=== PATIENT | male | born 1970 | race African-American/Black ===

== ENCOUNTER 2016-07-10 08:46 | Observation (INO) | payer OTHER ==
[~2016-07-10] VITALS: Ht 165.1 cm; Wt 88.6 kg
[~2016-07-10 08:46] MED LIST: CLEOCIN300 MG PO
[2016-07-10 09:46] LABS: HEMATOCRIT 47.7 % (38.0-50.0); MCH 32.2 PG (29.0-34.0); MCHC 33.5 G/DL (30.0-36.0); MEAN PLAT.VOLUME 8.2 uM^3 (9.0-12.4); PLATELET COUNT 283 K/uL (156-360); RBC DIS.WIDTH-CV 11.9 % (11.8-14.6); RBC DIS.WIDTH-SD 41.9 % (39-53); RED BLOOD COUNT 4.97 M/uL (4.00-5.50); WHITE BLOOD COUNT 8.8 K/uL (4.1-10.2)
[2016-07-10 09:55] LABS: CHLORIDE 107 mEq/L (99-109); POTASSIUM 3.9 mEq/L (3.7-5.4); SODIUM 141 mEq/L (136-147)
[2016-07-10 09:57] LABS: GLUCOSE 122 mg/dL (70-99)
[2016-07-10 09:59] LABS: ANION GAP 10 MEQ/L (2-14)
[2016-07-10 10:00] LABS: SERUM ETHYL ALCOHOL < 10 mg/dL
[2016-07-10 10:01] LABS: GFR ESTIMATE (CALCULATED) > 59 mL/min/
[2016-07-10 10:02] LABS: UREA NITROGEN (BUN) 18 mg/dL (9-23)
[2016-07-10 10:09] LABS: TROP-I INTERPRETATION NEGATIVE; TROPONIN-I < 0.01 ng/mL (0.0-0.30)
[2016-07-10 11:11] LABS: ADD MIUA? NO; BILIRUBIN NEGATIVE; BLOOD NEGATIVE; COLOR YELLOW ((YELLOW)); GLUCOSE (STRIP) NEGATIVE; KETONES NEGATIVE; LEUKOCYTES NEGATIVE; NITRITE NEGATIVE; PROTEIN (STRIP) NEGATIVE; SPECIFIC GRAVITY 1.029 (1.000-1.030)
[2016-07-10 11:31] LABS: ADD MEDTOX COMMENT Y; AMPHETAMINE NEGATIVE (500 ng/mL); BARBITURATES NEGATIVE (200 ng/mL); BENZODIAZEPINES NEGATIVE (150 ng/mL); COCAINE PRESUMPTIVE POSITIVE (150 ng/mL); INTERNAL CONTROLS VALID? YES; METHADONE NEGATIVE (200 ng/mL); METHAMPHETAMINE NEGATIVE (500 ng/mL); OPIATES (MORPHINE) NEGATIVE (100 ng/mL); OXYCODONE NEGATIVE (100 ng/mL); PHENCYCLIDINE NEGATIVE (25 ng/mL); PROPOXYPHENE NEGATIVE (300 ng/mL); THC CANNABINOIDS NEGATIVE (50 ng/mL); TRICYCLIC ANTIDEPRESSANTS NEGATIVE (300 ng/mL)
[2016-07-10 13:12] LABS: HDL CHOLESTEROL 62 MG/DL (Desirable>=40); LDL CHOLESTEROL 106 mg/dL (Desirable<100); NON-HDL CHOLESTEROL 119 mg/dL (Desirable<160); TOTAL CHOLESTEROL 181 mg/dL (Desirable<200); TRIGLYCERIDES 63 MG/DL (Normal: <150)
[2016-07-10 13:51] VITALS: BP 113/67
[2016-07-10 16:07] VITALS: BP 135/95
[2016-07-10 19:32] LABS: TROP-I INTERPRETATION NEGATIVE; TROPONIN-I < 0.01 ng/mL (0.0-0.30)
[2016-07-10 20:01] VITALS: BP 150/67
[2016-07-11] VITALS (7 sets, daily range): BP systolic 106–128; BP diastolic 67–80
[2016-07-11 08:42] LABS: TROP-I INTERPRETATION NEGATIVE; TROPONIN-I < 0.01 ng/mL (0.0-0.30)
[2016-07-11 13:00] LABS: HIV INDEX 276.09; HIV-1/2 AB/AG COMBO REACTIVE
[2016-07-11] MEDS ORDERED: OXYCODONE HCL10 MG PO (22:08)
[2016-07-12 00:06] VITALS: BP 120/60
[2016-07-12 04:28] VITALS: BP 111/88
[2016-07-12 08:00] VITALS: BP 123/78
[2016-07-12 12:13] VITALS: BP 131/68
[2016-07-14 12:13] LABS: HIV 1 Antibody Positive (Negative); HIV 2 Antibody Negative (Negative)
== END 2016-07-12 13:37 | disposition left against medical advice (07) ==
LOC: EME 08:46 → EDOF 12:10 → 5WEST 12:10 → EDOF 12:10 → 5WEST 13:31
PROVIDERS: Internal Medicine; Nurse Practitioner Family
DX: R07.9 Chest pain, unspecified (principal); B20 Human immunodeficiency virus [HIV] disease; Z91.14 Patient's other noncompliance with medication regimen; F11.10 Opioid abuse, uncomplicated; F14.10 Cocaine abuse, uncomplicated; F10.20 Alcohol dependence, uncomplicated; G89.29 Other chronic pain; M54.5 Low back pain; E66.9 Obesity, unspecified; F17.200 Nicotine dependence, unspecified, uncomplicated; Z68.32 Body mass index [BMI] 32.0-32.9, adult
CPT/HCPCS: 71020; 80048; 80061; 81003; 83735; 84484; 84999; 85027; 86701 90; 86702 90; 86703; 93005; 99281; 99285; G0378; G0480; J1650; J2060; J3411; J7030

== ENCOUNTER 2016-08-18 13:35 | Emergency (ER) | payer OTHER ==
[~2016-08-18] VITALS: Ht 165.1 cm; Wt 85.3 kg
[~2016-08-18 13:35] MED LIST changes: +OXYCODONE HCL10 MG PO
[2016-08-18 15:52] VITALS: BP 141/89
== END 2016-08-18 16:57 | disposition home or self-care (01) ==
LOC: EME 13:35
DX: N34.2 Other urethritis (principal); Z21 Asymptomatic human immunodeficiency virus [HIV] infection status; F32.9 Major depressive disorder, single episode, unspecified; Z87.891 Personal history of nicotine dependence; Z91.14 Patient's other noncompliance with medication regimen
CPT/HCPCS: 80053; 81003; 85027; 99281; 99282; J0696

== ENCOUNTER 2016-09-28 12:19 | Observation (INO) | payer OTHER ==
[~2016-09-28] VITALS: Ht 167.6 cm; Wt 88.6 kg
[2016-09-28 13:45] LABS: MCH 30.2 PG (29.0-34.0); MCHC 33.6 G/DL (30.0-36.0); MCV 89.9 FL (86-99); MEAN PLAT.VOLUME 8.6 uM^3 (9.0-12.4); PLATELET COUNT 237 K/uL (156-360); RBC DIS.WIDTH-CV 11.9 % (11.8-14.6); RBC DIS.WIDTH-SD 38.6 % (39-53); RED BLOOD COUNT 4.67 M/uL (4.00-5.50); WHITE BLOOD COUNT 6.2 K/uL (4.1-10.2)
[2016-09-28 13:56] LABS: CHLORIDE 112 mEq/L (99-109); SODIUM 139 mEq/L (136-147)
[2016-09-28 13:58] LABS: GLUCOSE 124 mg/dL (70-99)
[2016-09-28 13:59] LABS: ANION GAP 10 MEQ/L (2-14)
[2016-09-28 14:02] LABS: GFR ESTIMATE (CALCULATED) > 59 mL/min/
[2016-09-28 14:03] LABS: UREA NITROGEN (BUN) 19 mg/dL (9-23)
[2016-09-28 14:08] LABS: TROP-I INTERPRETATION NEGATIVE; TROPONIN-I < 0.01 ng/mL (0.0-0.30)
[2016-09-28 14:28] LABS: ADD MEDTOX COMMENT Y; AMPHETAMINE NEGATIVE (500 ng/mL); BARBITURATES NEGATIVE (200 ng/mL); BENZODIAZEPINES NEGATIVE (150 ng/mL); COCAINE PRESUMPTIVE POSITIVE (150 ng/mL); INTERNAL CONTROLS VALID? YES; METHADONE NEGATIVE (200 ng/mL); METHAMPHETAMINE NEGATIVE (500 ng/mL); OPIATES (MORPHINE) NEGATIVE (100 ng/mL); OXYCODONE NEGATIVE (100 ng/mL); PHENCYCLIDINE NEGATIVE (25 ng/mL); PROPOXYPHENE NEGATIVE (300 ng/mL); THC CANNABINOIDS NEGATIVE (50 ng/mL); TRICYCLIC ANTIDEPRESSANTS NEGATIVE (300 ng/mL)
[2016-09-28 14:47] LABS: CREATINE KINASE 206 IU/L (1-294); TOTAL CK 206 IU/L (1-294)
[2016-09-28 14:48] LABS: CK-MB 2.4 ng/mL (0.0-4.9)
[2016-09-28] MEDS ORDERED: ATRIPLA TABLET1 EACH PO (16:12)
[2016-09-28] MEDS ORDERED: CYCLOBENZAPRINE10 MG PO (16:17)
[2016-09-28] MEDS ORDERED: TRAMADOL HCL50 MG PO (16:18)
[2016-09-28] MEDS ORDERED: DICLOFENAC SODI75 MG PO (16:18)
[2016-09-28] MEDS ORDERED: AMITRIPTYLINE H25 MG PO (16:19)
[2016-09-28 17:40] VITALS: BP 113/65
[2016-09-28 19:54] VITALS: BP 118/53
[2016-09-28 20:09] LABS: TROP-I INTERPRETATION NEGATIVE; TROPONIN-I 0.01 ng/mL (0.0-0.30)
[2016-09-29] VITALS: BP 110/58
[2016-09-29 02:21] LABS: TROP-I INTERPRETATION NEGATIVE; TROPONIN-I < 0.01 ng/mL (0.0-0.30)
[2016-09-29 04:28] VITALS: BP 137/84
[2016-09-29 08:52] LABS: ALKALINE PHOSPHATASE 53 IU/L (3-129); ANION GAP 7 MEQ/L (2-14); CHLORIDE 112 MEQ/L (99-109); GFR ESTIMATE (CALCULATED) > 59 mL/min/; GLUCOSE 111 mg/dL (70-99); POTASSIUM 3.7 MEQ/L (3.7-5.4); SAMPLE HEMOLYSIS CHECK 0; SAMPLE ICTERIC CHECK 0; SAMPLE LIPEMIA CHECK 0; SODIUM 140 MEQ/L (136-147); TOTAL BILIRUBIN 0.3 MG/DL (0.0-1.0); UREA NITROGEN (BUN) 23 mg/dL (9-23)
[2016-09-29 09:00] VITALS: BP 165/74
[2016-09-29 09:48] LABS: TROP-I INTERPRETATION NEGATIVE; TROPONIN-I < 0.01 ng/mL (0.0-0.30)
[2016-09-29 11:46] VITALS: BP 116/68
[2016-09-29] MEDS ORDERED: PRAVASTATIN SOD20 MG PO (12:32)
[2016-09-29] MEDS ORDERED: THERAGRAN1 TABLET PO (12:32)
[2016-09-29] MEDS ORDERED: FOLIC ACID1 MG PO (12:32)
[2016-09-29] MEDS ORDERED: MYCOSTATIN 100,60 ML PO (12:32)
[2016-09-29] MEDS ORDERED: ATRIPLA TABLET1 EACH PO (12:32)
[2016-09-29] MEDS ORDERED: ASPIR-LOW81 MG PO (12:34)
[2016-09-30 12:12] LABS: HIV RNA QUANT LOG10 RESULT 4.88 Log(10) (<1.30)
== END 2016-09-29 15:20 | disposition home or self-care (01) ==
LOC: EME 12:19 → EDOF 15:40 → 5WEST 15:40 → ENRESERV 15:41 → 5WEST 17:18
PROVIDERS: Emergency Medicine; Hospitalist
DX: R07.89 Other chest pain (principal); F14.10 Cocaine abuse, uncomplicated; B20 Human immunodeficiency virus [HIV] disease; F17.200 Nicotine dependence, unspecified, uncomplicated; K13.0 Diseases of lips; Z79.82 Long term (current) use of aspirin
CPT/HCPCS: 71020; 80048; 80053; 82550; 82553; 84484; 84999; 85027; 85379; 86355 90; 86359 90; 86360 90; 87536; 93005; 93306; 99281; 99285; G0378; J1650; J1885; J2060; J7120

== ENCOUNTER 2016-10-18 14:34 | Inpatient (IN) | payer OTHER ==
[~2016-10-18] VITALS: Ht 165.1 cm; Wt 83.9 kg
[~2016-10-18 14:34] MED LIST changes: +AMITRIPTYLINE H25 MG PO; +ASPIR-LOW81 MG PO; +ATRIPLA TABLET1 EACH PO; +CYCLOBENZAPRINE10 MG PO; +DICLOFENAC SODI75 MG PO; +FOLIC ACID1 MG PO; +MYCOSTATIN 100,60 ML PO; +PRAVASTATIN SOD20 MG PO; +THERAGRAN1 TABLET PO; +TRAMADOL HCL50 MG PO
[2016-10-18 16:16] LABS: HEMATOCRIT 48.8 % (38.0-50.0); MCH 29.3 PG (29.0-34.0); MCHC 33.4 G/DL (30.0-36.0); MCV 87.8 FL (86-99); MEAN PLAT.VOLUME 9.1 uM^3 (9.0-12.4); PLATELET COUNT 186 K/uL (156-360); RBC DIS.WIDTH-CV 12.6 % (11.8-14.6); RBC DIS.WIDTH-SD 40.6 % (39-53); RED BLOOD COUNT 5.56 M/uL (4.00-5.50); WHITE BLOOD COUNT 7.9 K/uL (4.1-10.2)
[2016-10-18 16:21] LABS: CHLORIDE 100 mEq/L (99-109); SODIUM 135 mEq/L (136-147)
[2016-10-18 16:23] LABS: GLUCOSE 97 mg/dL (70-99)
[2016-10-18 16:24] LABS: ANION GAP 12 MEQ/L (2-14)
[2016-10-18 16:27] LABS: GFR ESTIMATE (CALCULATED) > 59 mL/min/
[2016-10-18 16:28] LABS: UREA NITROGEN (BUN) 16 mg/dL (9-23)
[2016-10-18 17:01] LABS: EOSINOPHIL (%) 0 % (0-5); IMMATURE GRANULOCYTE (%) 0.3 % (0.0-0.7); INSTRUMENT ABS NEUTROPHIL CT 6.1 K/uL; MONOCYTE (%) 8.8 % (3-12); MONOCYTE COUNT 0.7 K/uL (0-0.8); NEUTROPHIL (%) 77.6 % (45-76); NEUTROPHIL COUNT 6.1 K/uL (1.8-6.4)
[2016-10-18 17:51] LABS: TROP-I INTERPRETATION NEGATIVE; TROPONIN-I < 0.01 ng/mL (0.0-0.30)
[2016-10-18 20:16] VITALS: BP 130/78
[2016-10-18 23:33] VITALS: BP 118/76
[2016-10-18 23:44] LABS: TROP-I INTERPRETATION NEGATIVE; TROPONIN-I < 0.01 ng/mL (0.0-0.30)
[2016-10-19 06:05] LABS: HEMATOCRIT 42.3 % (38.0-50.0); MCH 29.5 PG (29.0-34.0); MCHC 33.1 G/DL (30.0-36.0); MCV 89.1 FL (86-99); MEAN PLAT.VOLUME 8.6 uM^3 (9.0-12.4); PLATELET COUNT 175 K/uL (156-360); RBC DIS.WIDTH-CV 12.4 % (11.8-14.6); RBC DIS.WIDTH-SD 40.9 % (39-53); RED BLOOD COUNT 4.75 M/uL (4.00-5.50); WHITE BLOOD COUNT 5.9 K/uL (4.1-10.2)
[2016-10-19 06:27] LABS: ANION GAP 8 MEQ/L (2-14); CHLORIDE 104 MEQ/L (99-109); GFR ESTIMATE (CALCULATED) > 59 mL/min/; GLUCOSE 100 mg/dL (70-99); POTASSIUM 3.9 MEQ/L (3.7-5.4); SAMPLE HEMOLYSIS CHECK 0; SAMPLE ICTERIC CHECK 0; SAMPLE LIPEMIA CHECK 0; SODIUM 136 MEQ/L (136-147); TROP-I INTERPRETATION NEGATIVE; TROPONIN-I < 0.01 ng/mL (0.0-0.30); UREA NITROGEN (BUN) 14 mg/dL (9-23)
[2016-10-19 08:11] VITALS: BP 138/90
[2016-10-19 17:09] VITALS: BP 132/86
[2016-10-19 23:11] VITALS: BP 130/84
[2016-10-20 08:03] VITALS: BP 133/85
[2016-10-20 15:38] VITALS: BP 142/95
[2016-10-21 00:02] VITALS: BP 121/85
[2016-10-21 07:15] VITALS: BP 128/70
[2016-10-21 10:08] LABS: GFR ESTIMATE (CALCULATED) > 59 mL/min/; UREA NITROGEN (BUN) 13 mg/dL (9-23)
[2016-10-21 13:25] LABS: HIV RNA QUANT LOG10 RESULT 2.89 Log(10) (<1.30)
[2016-10-21 19:36] VITALS: BP 112/74
[2016-10-22 00:02] VITALS: BP 121/77
[2016-10-22 04:00] VITALS: BP 117/66
[2016-10-22 07:25] VITALS: BP 104/72
[2016-10-22 09:23] LABS: TREPONEMA ANTIBODY NEGATIVE (NEGATIVE)
[2016-10-22 16:54] VITALS: BP 106/70
[2016-10-23 00:08] VITALS: BP 110/64
[2016-10-23 07:55] VITALS: BP 116/71
[2016-10-23 16:25] VITALS: BP 137/88
[2016-10-23 22:52] VITALS: BP 105/58
[2016-10-24 07:56] VITALS: BP 124/87
[2016-10-24 16:07] VITALS: BP 120/86
[2016-10-24] MEDS ORDERED: Magic Mouthwash Garg MM (17:19)
[2016-10-24] MEDS ORDERED: OXYCODONE HCL10 MG PO (17:19)
[2016-10-24 22:54] VITALS: BP 113/77
[2016-10-25 08:07] VITALS: BP 118/82
[2016-10-25] MEDS ORDERED: DIFLUCAN200 MG PO (12:08)
[2016-10-25] MEDS ORDERED: ATRIPLA TABLET1 EACH PO (12:08)
[2016-10-25] MEDS ORDERED: [UNRECOGNIZED DRUG - OTHER] PO (12:08)
[2016-10-25] MEDS ORDERED: VALTREX50 MG/ML PO (12:08)
[2016-10-25] MEDS ORDERED: ROXICODONE5 MG PO (13:01)
== END 2016-10-25 13:38 | disposition home or self-care (01) | DRG 369 ==
LOC: EME 14:34 → ENRESERV 17:01 → EDOF 17:06 → 5EAST 17:06 → ENRESERV 17:30 → 5EAST 18:04 → ENPENDDIS 10-25 → 5EAST 10-25 13:38
PROVIDERS: Emergency Medicine; Internal Medicine; Internal Medicine Infectious Disease; Physician Assistant Medical
PROC: 0DB18ZX Excision of Upper Esophagus, Via Natural or Artificial Opening Endoscopic, Diagnostic (ICD-10-PCS; principal; 2016-10-20)
DX: B37.81 Candidal esophagitis (principal); K22.10 Ulcer of esophagus without bleeding; Z21 Asymptomatic human immunodeficiency virus [HIV] infection status; F17.200 Nicotine dependence, unspecified, uncomplicated; B25.8 Other cytomegaloviral diseases; F19.10 Other psychoactive substance abuse, uncomplicated; M54.9 Dorsalgia, unspecified; F14.10 Cocaine abuse, uncomplicated; B00.9 Herpesviral infection, unspecified; R07.89 Other chest pain; B37.0 Candidal stomatitis; K14.0 Glossitis; G89.29 Other chronic pain; E78.5 Hyperlipidemia, unspecified; Z91.14 Patient's other noncompliance with medication regimen; Z91.19 Patient's noncompliance with other medical treatment and regimen; Z71.6 Tobacco abuse counseling; F32.0 Major depressive disorder, single episode, mild; E66.9 Obesity, unspecified; Z68.30 Body mass index [BMI] 30.0-30.9, adult
CPT/HCPCS: 71010; 80048; 82565; 84484; 84520; 85025; 85027; 86355 90; 86359 90; 86360 90; 86780; 87040; 87070; 87075; 87076; 87185; 87205; 87536; 87900 90; 87901 90; 88305; 88342 TC; 93005; 99281; 99285; J0133; J0696; J1450; J1650; J2060; J2250; J2270; J3010; J7030; J7042; J7050; S0028

== ENCOUNTER 2017-02-21 09:21 | Emergency (ER) | payer OTHER ==
[~2017-02-21] VITALS: Ht 157.5 cm; Wt 83.6 kg
[~2017-02-21 09:21] MED LIST changes: +DIFLUCAN200 MG PO; +Magic Mouthwash Garg MM; +ROXICODONE5 MG PO; +VALTREX50 MG/ML PO; +[UNRECOGNIZED DRUG - OTHER] PO
[2017-02-21] MEDS ORDERED: PREDNISONE20 MG PO (13:36)
[2017-02-21] MEDS ORDERED: MOTRIN800 MG PO (13:36)
[2017-02-21] MEDS ORDERED: FLEXERIL10 MG PO (13:36)
[2017-02-21] MEDS ORDERED: LIDODERM 5% P1 PATCH TD (13:36)
[2017-02-21 14:08] VITALS: BP 135/88
== END 2017-02-21 14:11 | disposition home or self-care (01) ==
LOC: EME 09:21
DX: M54.5 Low back pain (principal); G89.29 Other chronic pain; W18.30XA Fall on same level, unspecified, initial encounter
CPT/HCPCS: 72100; 81003; 99281; 99284; J1885; J7512